=== PATIENT | male | born 1980 | race Caucasian/White ===

== ENCOUNTER 2024-07-29 15:54 | Inpatient (IN) | payer OTHER ==
[~2024-07-29] VITALS: Ht 154.9 cm; Wt 68.2 kg
[2024-07-29 16:24] LABS: BASOPHILS % (AUTO) 0.8 % (0.0-2.0); EOSINOPHILS % (AUTO) 2.5 % (1.0-6.0); HEMATOCRIT 41.3 % (41-53); LYMPHOCYTES # (AUTO) 1.9 K/uL (1.0-4.8); LYMPHOCYTES % (AUTO) 35.1 % (22.0-44.0); MEAN CORPUSCULAR HEMOGLOBIN 30.5 pg (26.0-34.0); MEAN CORPUSCULAR HGB CONC 33.9 G/dL (31.0-37.0); MEAN CORPUSCULAR VOLUME 90 fL (80-100); MONOCYTES # (AUTO) 0.4 K/uL (0.1-1.0); MONOCYTES % (AUTO) 8.3 % (2.0-9.0); NEUTROPHILS # (AUTO) 2.9 K/uL (1.8-7.7); NEUTROPHILS % (AUTO) 53.3 % (40.0-70.0); PLATELET COUNT (AUTO) 313 K/uL (150-450); RED BLOOD CELL COUNT(AUTO) 4.59 MIL/uL (4.50-5.90); RED CELL DISTRIBUTION WIDTH 14.8 % (11.5-14.5); WHITE BLOOD COUNT (AUTO) 5.3 K/uL (4.5-11.0)
[2024-07-29 16:25] LABS: ANION GAP 6 mmol/L (8-16); CALCIUM, TOTAL 8.7 mg/dL (8.8-10.5); CARBON DIOXIDE 31 mmol/L (22-29); CHLORIDE 103 mmol/L (98-107); CREATININE 0.62 mg/dL (0.60-1.30); GLOMERULAR FILTR. RATE CALC > 60 mL/min (>60); GLUCOSE,RANDOM 92 mg/dL (70-110); POTASSIUM 3.9 mmol/L (3.5-5.1); SODIUM SERUM 140 mmol/L (136-145); UREA NITROGEN, BLOOD 16 mg/dL (7-18)
[2024-07-29] MEDS ORDERED: MAGNESIUM HYDROXIDE SUSPENSION 30 ML UDCUP PO PRN (20:15)
[2024-07-29] MEDS ORDERED: BISACODYL 10 MG RECTAL RECTAL SUPPOSITORY PR PRN (20:15)
[2024-07-29] MEDS ORDERED: ZOLPIDEM TARTRATE 5 MG TABLET PO PRN (20:15)
[2024-07-29] MEDS ORDERED: ONDANSETRON HCL 4 MG/2 ML VIAL IVP PRN (20:15)
[2024-07-29] MEDS ORDERED: ACETAMINOPHEN 325 MG TABLET PO PRN (20:15)
[2024-07-29] MEDS: DOCUSATE SODIUM 100 MG CAPSULE PO SCH (20:23)
[2024-07-29 21:30] VITALS: BP 127/83; PULSE 67; RESP 18; TEMP 98.2; O2SAT 98
[2024-07-29] MEDS: HEPARIN SODIUM,PORCINE 5,000 UNITS/ML VIAL SQ SCH (23:43)
[2024-07-30 04:15] VITALS: BP 113/80; PULSE 66; RESP 18; TEMP 97.7; O2SAT 100
[2024-07-30 08:07] VITALS: BP 113/80; PULSE 73; RESP 18; TEMP 98.1; O2SAT 98
[2024-07-30] MEDS: PANTOPRAZOLE SODIUM 40 MG DR TABLET PO SCH (09:00)
[2024-07-30] MEDS: RisperiDONE 1 MG TABLET PO SCH (13:21)
[2024-07-30 20:08] VITALS: BP 111/66; PULSE 85; RESP 18; TEMP 98.6; O2SAT 99
[2024-07-31 02:06] LABS: HEPATITIS C AB (EIA) Non Reactive (Non Reactive)
[2024-07-31 04:33] VITALS: BP 112/77; PULSE 63; RESP 18; TEMP 97.5; O2SAT 98
[2024-07-31 08:03] VITALS: BP 123/79; PULSE 80; RESP 19; TEMP 97.3; O2SAT 100
[2024-07-31 17:11] VITALS: BP 112/83; PULSE 72; RESP 19; TEMP 97.7; O2SAT 99
[2024-07-31 19:40] VITALS: BP 113/71; PULSE 75; RESP 18; TEMP 98.4; O2SAT 99
[2024-08-01 04:38] VITALS: BP 126/80; PULSE 62; RESP 18; TEMP 97.7; O2SAT 99
[2024-08-01 08:59] VITALS: BP 122/82; PULSE 64; RESP 18; TEMP 97.9; O2SAT 98
[2024-08-01 20:13] VITALS: BP 125/72; PULSE 67; RESP 18; TEMP 97.9; O2SAT 98
[2024-08-01] MEDS: RisperiDONE 2 MG TABLET PO SCH (20:38)
[2024-08-02 04:23] VITALS: BP 115/78; PULSE 65; RESP 18; TEMP 97.7; O2SAT 99
[2024-08-02 07:28] VITALS: BP 129/77; PULSE 74; RESP 18; TEMP 98.2; O2SAT 99
[2024-08-02 20:10] VITALS: BP 110/70; PULSE 68; RESP 20; TEMP 97.2; O2SAT 100
[2024-08-02] MEDS ORDERED: RISP-32 PO (21:13)
[2024-08-03 04:05] VITALS: BP 114/70; PULSE 58; RESP 18; TEMP 97.3; O2SAT 100
[2024-08-03 08:10] VITALS: BP 120/71; PULSE 61; RESP 18; TEMP 97.9; O2SAT 100
[2024-08-03] MEDS ORDERED: ACET-2247 PO (09:42)
[2024-08-03] MEDS ORDERED: RISP-32 PO (09:42)
== END 2024-08-03 12:00 | DRG 885 ==
LOC: EMS 15:54 → EDH 20:14 → 6S 21:26
PROVIDERS: ADMIT Internal Medicine; ATTEND Internal Medicine
DX: F29 Unspecified psychosis not due to a substance or known physiological condition (principal); E87.3 Alkalosis; F20.9 Schizophrenia, unspecified; F41.9 Anxiety disorder, unspecified; G47.00 Insomnia, unspecified; F19.10 Other psychoactive substance abuse, uncomplicated; R51.9 Headache, unspecified
CPT/HCPCS: 80048; 85025; 86803; 87340; 99285; G0480; J1644